=== PATIENT | female | born 1995 | race Hispanic/Latino ===

== ENCOUNTER 2020-03-31 21:34 | Inpatient (IN) | payer OTHER ==
[~2020-03-31] VITALS: Ht 160 cm; Wt 86.6 kg
[2020-03-31] MEDS ORDERED: LACTATED RINGERS 1000ML 1,000 ML IV SCH (21:45)
[2020-03-31] MEDS ORDERED: PHARMACY COMMUNICATION MISC SCH (22:00)
[2020-03-31 22:11] LABS: APPEARANCE,URINE Cloudy (CLEAR); BILIRUBIN,URINE Negative (NEGATIVE); COLOR,URINE Dark Yellow (YELLOW); GLUCOSE, URINE (UA) Negative (NEGATIVE); KETONES,URINE Trace mg/dL (NEGATIVE); LEUKOCYTE ESTERASE ,URINE Negative (NEGATIVE); NITRATE,URINE Negative (NEGATIVE); OCCULT BLOOD,URINE Negative (NEGATIVE); PROTEIN,URINE POS 1+ mg/dL (NEGATIVE)
[2020-03-31 22:19] LABS: BACTERIA,URINE Few /HPF (None Seen); RBC,URINE None Seen /HPF (0-1)
[2020-03-31] MEDS ORDERED: LACTATED RINGERS 1000ML 1,000 ML IV PRN (22:28)
[2020-03-31 22:32] VITALS: BP 120/66
[2020-03-31] MEDS ORDERED: PREN-196 PO (22:36)
[2020-03-31 23:30] LABS: MEAN CORPUSCULAR HEMOGLOBIN 31.4 pg (27.0-33.0); MEAN CORPUSCULAR HGB CONC 34.2 g/dL (32.0-36.0); MEAN CORPUSCULAR VOLUME 91.7 fL (79-99); RED BLOOD CELL COUNT(AUTO) 3.6 MIL/uL (4.00-5.50); RED CELL DISTRIBUTION WIDTH 13.2 % (11.0-15.5); WHITE BLOOD COUNT (AUTO) 10.6 K/uL (4.8-10.8)
[2020-03-31] MEDS ORDERED: ROPIVACAINE 0.2% 100ML VIAL 100 ML EP SCH (23:30)
[2020-03-31] MEDS ORDERED: NALOXONE HCL 0.4 MG/1 ML ML IV PRN (23:30)
[2020-03-31] MEDS ORDERED: EPHEDRINE SULFATE 50 MG/ML AMPULE IVP PRN (23:30)
[2020-03-31] MEDS ORDERED: LACTATED RINGERS 500 ML 500 ML IV PRN (23:30)
[2020-04-01] MEDS: BUTORPHANOL TARTRATE 2 MG/ML IVP PRN ×2 (06:09→08:20)
[2020-04-01] MEDS ORDERED: LIDOCAINE HCL 1% 20 ML VIAL INJ PRN (07:30)
[2020-04-01] MEDS ORDERED: OXYTOCIN 10 USP UNITS/ML 20 UNIT in LACTATED RINGERS 1000ML 1,000 ML IV SCH (08:00)
[2020-04-01] MEDS ORDERED: OXYTOCIN-LR 20 UNITS/1000 ML 1,000 ML IV SCH (08:00)
[2020-04-01] MEDS ORDERED: LANOLIN 30GM OINTMENT TP PRN (10:00)
[2020-04-01] MEDS ORDERED: ACETAMINOPHEN-CODEINE 300/30MG TAB PO PRN (10:00)
[2020-04-01] MEDS ORDERED: DIPH,PERTUSS(ACELL),TET VAC/PF 0.5 ML VIAL IM PRN (10:00)
[2020-04-01] MEDS ORDERED: WITCH HAZEL 1 PAD TP PRN (10:00)
[2020-04-01] MEDS ORDERED: ACETAMINOPHEN 325 MG TAB PO PRN (10:00)
[2020-04-01] MEDS ORDERED: MEASLES/MUMPS/RUBELLA VACCINE, LIVE 0.5 ML/VIAL SQ PRN (10:00)
[2020-04-01] MEDS ORDERED: BENZOCAINE/LANOLIN/ALOE VERA 60 ML AEROSOL TP PRN (10:00)
[2020-04-01] MEDS: IBUPROFEN 600 MG TABLET PO PRN ×2 (11:21→21:19)
[2020-04-01 11:45] VITALS: BP 125/67
--- NOTE | 2020-04-01 11:45 | NUR ---
REPORT RECEIVED FROM GRACY AND PATIENT CARE TRANSFERED AT THIS TIME. VITAL SIGNS ARE WITHIN NORMAL AND PATIENT IS STABLE AND INDICATED BEEN ABLE TO VOID PRIOR TO TRANSFER. PIV IS PATENT AND PATIENT ORIENTED TO UNIT. ASKED PATIENT IF NEEDING TO VOID SINCE UTERUS WAS DEVIATED TO RIGHT AND INDICATED NOT NEEDING TO VOID. PATIENT DENIES ANY PROBLEMS AND WAS GIVEN MOTRIN PRIOR TO TRANSFER. BROUGHT IN WITH PATIENT AND BABY .
--- NOTE | 2020-04-01 14:00 | NUR ---
PATIENT ASSISTED TO BATHROOM AND VOIDED 750CC OF BLOOD TINGED URINE. DERMAPLAST, TUCKS AND SITZ BATH ISSUED AT THIS TIME AND INSTRUCTED ON USE AND APPLIED TUCKS AND SPRAY WHEN ISSUED. INSTRUCTIONS ON USE OF SITZ BATH GIVEN. PATIENT AMBULATED TO BATHROOM WITH NO DIFFICULTY OR DIZZINESS.
--- NOTE | 2020-04-01 15:45 | NUR ---
TDAP GIVEN WITH SIGNED CONSENT AND VITAL SIGNS DONE. PATIENT AFEBRILE AND REMAINS STABLE.
[2020-04-01 15:52] VITALS: BP 114/62
[2020-04-01 20:15] VITALS: BP 122/61
[2020-04-01] MEDS: DOCUSATE SODIUM 100 MG CAP PO SCH (21:18)
[2020-04-01 23:55] VITALS: BP 130/64
[2020-04-02 03:52] VITALS: BP 114/69
[2020-04-02] MEDS: IBUPROFEN 600 MG TABLET PO PRN (04:00)
[2020-04-02 07:48] VITALS: BP 108/62
[2020-04-02] MEDS: DOCUSATE SODIUM 100 MG CAP PO SCH (08:39)
[2020-04-02 10:41] VITALS: BP 118/65
--- NOTE | 2020-04-02 11:30 | NUR ---
DISCHARGE INSTRUCTIONS GIVEN AND SCRIPT FOR PAIN MANAGEMENT ISSUED. PATIENT DENIES PAIN AND FREQUENCY AND DOSAGE OF PAIN MEDS REINFORCED FOR DISCHARGE. VERBALIZED UNDERSTANDING INSTRUCTIONS GIVEN.
--- NOTE | 2020-04-02 12:45 | NUR ---
PATIENT WAS TAKEN VIA W/C CARRYING BABY IN ARMS TO FAMILY VEHICLE AND WAS DISCHARGED TO HER MOTHER IN LAW IN STABLE CONDITION. PATIENT DENIES PAIN.
[2020-04-03 21:07] LABS: HEPATITIS Bs ANTIGEN SCREEN P Negative (Negative)
== END 2020-04-02 12:45 | disposition home or self-care (01) | DRG 807 ==
LOC: EDH 21:34 → OBSVTOIN 21:35 → LDH 21:35 → WSH 04-01 11:30
PROVIDERS: ADMIT Obstetrics & Gynecology; ATTEND Obstetrics & Gynecology
PROC: 10E0XZZ Delivery of Products of Conception, External Approach (ICD-10-PCS; principal; 2020-04-01)
PROC: 0KQM0ZZ Repair Perineum Muscle, Open Approach (ICD-10-PCS; 2020-04-01)
PROC: 10907ZC Drainage of Amniotic Fluid, Therapeutic from Products of Conception, Via Natural or Artificial Opening (ICD-10-PCS; 2020-04-01)
PROC: 3E0234Z Introduction of Serum, Toxoid and Vaccine into Muscle, Percutaneous Approach (ICD-10-PCS; 2020-04-01)
DX: O70.1 Second degree perineal laceration during delivery (principal); Z37.0 Single live birth; Z3A.38 38 weeks gestation of pregnancy; Z23 Encounter for immunization
CPT/HCPCS: 36415; 81001; 85027; 86592; 86850; 86900; 86901; 87340; 90715; G0378; J0595; J2590; J7120